=== PATIENT | male | born 1950 | race African-American/Black ===

== ENCOUNTER 2017-12-06 18:10 | Inpatient (IN) | payer OTHER, MEDICARE ==
[2017-12-06 18:42] LABS: ADD MAN DIFF? NO
[2017-12-06 18:45] LABS: BASO % 1 % (0-3); EOS % 0 % (0-3); HEMATOCRIT 42.7 % (39.0-53.0); HEMOGLOBIN 13.7 g/dL (13.0-17.5); LYMPH # 1.3 x10^3/uL (1.0-4.8); LYMPH % 16 % (24-48); MEAN CORPUSCULAR HEMOGLOBIN 27 pg (25-35); MEAN CORPUSCULAR HGB CONC 32 g/dL (31-37); MEAN CORPUSCULAR VOLUME 84 fL (79-100); MONO # 0.6 x10^3/uL (0.0-1.1); MONO % 7 % (0-9); NEUT # 6.4 x10^3uL (1.8-7.7); NEUT % 77 % (31-73); PLATELET COUNT 197 x10^3/uL (140-400); RED CELL DISTRIBUTION WIDTH 15.3 % (11.5-14.5); WHITE BLOOD COUNT 8.3 x10^3/uL (4.0-11.0)
[2017-12-06] MEDS: IV NORMAL SALINE 1000ML BAG 1,000 ML IV ×3 (18:45→21:55)
[2017-12-06 18:56] LABS: INR 1.2 (0.8-1.1); PROTHROMBIN TIME PATIENT 14.9 SEC (11.7-14.0)
[2017-12-06 19:00] LABS: ANION GAP 21 (6-14); BLOOD UREA NITROGEN 97 mg/dL (8-26); BUN/CREATININE RATIO 26 (6-20); CALCIUM 10.8 mg/dL (8.5-10.1); CARBON DIOXIDE 16 mmol/L (21-32); CHLORIDE 88 mmol/L (98-107); CREATININE 3.8 mg/dL (0.7-1.3); GFR 19.4; POTASSIUM 5.9 mmol/L (3.5-5.1); SODIUM 125 mmol/L (136-145)
[2017-12-06 19:04] LABS: ALBUMIN 3.4 g/dL (3.4-5.0); ALBUMIN/GLOBULIN RATIO 0.8 (1.0-1.7); ALK PHOS 81 U/L (46-116); ALT (SGPT) 18 U/L (16-63); AST (SGOT) 7 U/L (15-37); LIPASE 640 U/L (73-393); MAGNESIUM 3.9 mg/dL (1.8-2.4); TOTAL BILIRUBIN 0.7 mg/dL (0.2-1.0); TOTAL PROTEIN 7.7 g/dL (6.4-8.2)
[2017-12-06 19:07] LABS: TROPONINI < 0.017 ng/mL (0.000-0.055)
[2017-12-06 19:10] LABS: THYROID STIM HORMONE (TSH) 0.401 uIU/mL (0.358-3.74)
[2017-12-06 19:14] LABS: CKMB MASS < 0.5 ng/mL (0.0-3.6); CREATINE KINASE 28 U/L (39-308)
[2017-12-06 19:14] LABS: NT-PRO BNP 60 pg/mL (0-124)
[2017-12-06 19:16] LABS: GLUCOSE 854 mg/dL (70-99)
[2017-12-06] MEDS: INSULIN,REGULAR 150 UNIT DRIP 150 ML IV (20:12)
[2017-12-06 21:08] LABS: BASE EXCESS ABG -10 mmol/L (-3-3); HCO3 ABG 15 mmol/L (21-28); PCO2 ABG 31 mmHg (35-46); PH ABG 7.31 (7.35-7.45); PO2 ABG 74 mmHg (65-108); SAT O2 ABG 92 % (92-99)
[2017-12-06 21:32] LABS: BILIRUBIN,URINE SMALL (NEG); CLARITY,URINE CLEAR; COLOR,URINE YELLOW; GLUCOSE,URINE >=1000 mg/dL (NEG); NITRITE,URINE NEGATIVE (NEG); PH,URINE 5.5; PROTEIN,URINE NEGATIVE (NEG-TRACE); UROBILINOGEN,URINE 0.2 mg/dL (0.2 mg/dL)
[2017-12-06 21:38] LABS: AMPHETAMINE/METHAMPHETAMINE NEG (NEG); BACTERIA,URINE 0 /HPF (0-FEW); BARBITURATES NEG (NEG); BENZODIAZEPINES NEG (NEG); CANNABINOIDS NEG (NEG); COCAINE NEG (NEG); ETHANOL, URINE NEG (NEG); METHADONE NEG (NEG); OPIATES NEG (NEG); PHENCYCLIDINE NEG (NEG); RBC,URINE 0 /HPF (0-2); SQUAMOUS EPITHELIAL CELL,UR OCC /LPF; WBC,URINE 0 /HPF (0-4)
[2017-12-06 21:39] LABS: HYALINE CASTS, URINE FEW /HPF
[2017-12-06 21:54] LABS: POC GLUCOSE 473 mg/dL (70-99)
[2017-12-06 23:17] LABS: POC GLUCOSE 273 mg/dL (70-99)
[2017-12-07 00:22] LABS: POC GLUCOSE 289 mg/dL (70-99)
[2017-12-07 00:57] LABS: ANION GAP 14 (6-14); BLOOD UREA NITROGEN 85 mg/dL (8-26); CALCIUM 10.4 mg/dL (8.5-10.1); CARBON DIOXIDE 21 mmol/L (21-32); CHLORIDE 104 mmol/L (98-107); GFR 25.5; GLUCOSE 261 mg/dL (70-99); POTASSIUM 4.7 mmol/L (3.5-5.1); SODIUM 139 mmol/L (136-145)
[2017-12-07 01:00] LABS: MAGNESIUM 3.7 mg/dL (1.8-2.4); PHOSPHORUS 2.5 mg/dL (2.6-4.7)
[2017-12-07 01:22] LABS: POC GLUCOSE 202 mg/dL (70-99)
[2017-12-07] MEDS ORDERED: DEXTROSE 50% 25 GM / 50ML DISP.SYRIN. IV ×2 (02:30→13:15)
[2017-12-07 02:34] LABS: POC GLUCOSE 145 mg/dL (70-99)
[2017-12-07] MEDS: INSULIN GLARGINE 300 UNITS/3 ML INSULN.PEN. SQ ×2 (02:38→21:03)
[2017-12-07 03:36] LABS: POC GLUCOSE 122 mg/dL (70-99)
[2017-12-07 08:12] LABS: POC GLUCOSE 172 mg/dL (70-99)
[2017-12-07 08:34] LABS: POC GLUCOSE 243 mg/dL (70-99)
[2017-12-07] MEDS: INSULIN LISPRO 300 UNITS/3 ML INSULN.PEN. SQ ×6 (08:43→17:15)
[2017-12-07 09:00] LABS: ALBUMIN/GLOBULIN RATIO 0.8 (1.0-1.7); ALK PHOS 70 U/L (46-116); ALT (SGPT) 15 U/L (16-63); ANION GAP 13 (6-14); AST (SGOT) 5 U/L (15-37); BLOOD UREA NITROGEN 73 mg/dL (8-26); BUN/CREATININE RATIO 29 (6-20); CARBON DIOXIDE 22 mmol/L (21-32); CHLORIDE 106 mmol/L (98-107); CREATININE 2.5 mg/dL (0.7-1.3); GFR 31.5; GLUCOSE 187 mg/dL (70-99); POTASSIUM 4.3 mmol/L (3.5-5.1); SODIUM 141 mmol/L (136-145); TOTAL BILIRUBIN 0.5 mg/dL (0.2-1.0); TOTAL PROTEIN 6.8 g/dL (6.4-8.2)
[2017-12-07] MEDS: IV NORMAL SALINE 1000ML BAG 1,000 ML IV ×2 (12:12→20:59)
[2017-12-07] MEDS ORDERED: ACETAMINOPHEN 325 MG TABLET. PO (13:15)
[2017-12-07] MEDS ORDERED: MORPHINE SULFATE 4 MG/ML DISP.SYRIN. IV (13:15)
[2017-12-07] MEDS ORDERED: DOCUSATE SODIUM 100 MG CAPSULE. PO (13:15)
[2017-12-07] MEDS ORDERED: ONDANSETRON PF 4 MG/2 ML VIAL. IV (13:15)
[2017-12-07] MEDS ORDERED: traMADol 50 MG TABLET PO (13:15)
[2017-12-07] MEDS ORDERED: hydrALAZINE 20 MG/ML VIAL. IVP (13:15)
[2017-12-07] MEDS: CHLORHEXIDINE 0.12% 15 ML MOUTHWASH. SWSP ×2 (14:27→21:00)
[2017-12-07] MEDS: HEPARIN PF for SUB-Q USE 5,000 UNIT/0.5 ML VIAL. SQ ×2 (14:27→21:43)
[2017-12-07 16:28] LABS: POC GLUCOSE 238 mg/dL (70-99)
[2017-12-07 16:49] LABS: POC GLUCOSE 192 mg/dL (70-99)
[2017-12-07 18:08] LABS: POC GLUCOSE 237 mg/dL (70-99)
[2017-12-07] MEDS: POLYETHYLENE GLYCOL 3350 17 GM PACKET. PO (20:59)
[2017-12-07] MEDS: SIMVASTATIN 40 MG TABLET. PO (21:00)
[2017-12-07] MEDS ORDERED: INSULIN GLARGINE 300 UNITS/3 ML INSULN.PEN. SQ (21:00)
[2017-12-07] MEDS: amLODIPine BESYLATE 10 MG TABLET PO (21:00)
[2017-12-07 21:09] LABS: POC GLUCOSE 158 mg/dL (70-99)
[2017-12-07 21:12] LABS: MRSA BY PCR Positive (Negative)
[2017-12-08] MEDS: HEPARIN PF for SUB-Q USE 5,000 UNIT/0.5 ML VIAL. SQ ×3 (05:34→22:01)
[2017-12-08 05:35] LABS: ANION GAP 8 (6-14); BLOOD UREA NITROGEN 42 mg/dL (8-26); CALCIUM 9.8 mg/dL (8.5-10.1); CARBON DIOXIDE 23 mmol/L (21-32); CHLORIDE 106 mmol/L (98-107); CREATININE 1.7 mg/dL (0.7-1.3); GFR 49.2; GLUCOSE 147 mg/dL (70-99); SODIUM 137 mmol/L (136-145)
[2017-12-08 07:32] LABS: ADD MAN DIFF? NO
[2017-12-08 07:38] LABS: BASO % 1 % (0-3); EOS # 0.1 x10^3/uL (0.0-0.7); EOS % 1 % (0-3); HEMATOCRIT 33.2 % (39.0-53.0); HEMOGLOBIN 10.8 g/dL (13.0-17.5); LYMPH # 2.3 x10^3/uL (1.0-4.8); LYMPH % 41 % (24-48); MEAN CORPUSCULAR HEMOGLOBIN 26 pg (25-35); MEAN CORPUSCULAR HGB CONC 33 g/dL (31-37); MEAN CORPUSCULAR VOLUME 81 fL (79-100); MONO # 0.5 x10^3/uL (0.0-1.1); MONO % 9 % (0-9); NEUT # 2.6 x10^3uL (1.8-7.7); NEUT % 48 % (31-73); PLATELET COUNT 113 x10^3/uL (140-400); RED BLOOD COUNT 4.08 x10^6/uL (4.30-5.70); RED CELL DISTRIBUTION WIDTH 14.5 % (11.5-14.5); WHITE BLOOD COUNT 5.5 x10^3/uL (4.0-11.0)
[2017-12-08] MEDS: INSULIN LISPRO 300 UNITS/3 ML INSULN.PEN. SQ ×6 (07:54→17:14)
[2017-12-08 08:20] LABS: POC GLUCOSE 147 mg/dL (70-99)
[2017-12-08] MEDS: CHLORHEXIDINE 0.12% 15 ML MOUTHWASH. SWSP ×2 (08:38→22:00)
[2017-12-08 12:01] LABS: POC GLUCOSE 96 mg/dL (70-99)
[2017-12-08] MEDS: POLYETHYLENE GLYCOL 3350 17 GM PACKET. PO (12:43)
[2017-12-08 16:08] LABS: POC GLUCOSE 223 mg/dL (70-99)
[2017-12-08 17:15] LABS: HEMOGLOBIN A1C 13.7 % (4.8-5.6)
[2017-12-08 21:32] LABS: POC GLUCOSE 160 mg/dL (70-99)
[2017-12-08] MEDS: SIMVASTATIN 40 MG TABLET. PO (21:53)
[2017-12-08] MEDS: amLODIPine BESYLATE 10 MG TABLET PO (21:53)
[2017-12-08] MEDS: INSULIN GLARGINE 300 UNITS/3 ML INSULN.PEN. SQ (22:02)
[2017-12-09 04:56] LABS: ADD MAN DIFF? NO
[2017-12-09 05:22] LABS: BASO % 1 % (0-3); EOS # 0.1 x10^3/uL (0.0-0.7); EOS % 2 % (0-3); HEMATOCRIT 31.5 % (39.0-53.0); HEMOGLOBIN 10.2 g/dL (13.0-17.5); LYMPH # 2.1 x10^3/uL (1.0-4.8); LYMPH % 44 % (24-48); MEAN CORPUSCULAR HEMOGLOBIN 27 pg (25-35); MEAN CORPUSCULAR HGB CONC 32 g/dL (31-37); MEAN CORPUSCULAR VOLUME 82 fL (79-100); MONO # 0.5 x10^3/uL (0.0-1.1); MONO % 11 % (0-9); NEUT % 42 % (31-73); PLATELET COUNT 101 x10^3/uL (140-400); RED BLOOD COUNT 3.84 x10^6/uL (4.30-5.70); WHITE BLOOD COUNT 4.8 x10^3/uL (4.0-11.0)
[2017-12-09 05:35] LABS: ANION GAP 5 (6-14); BLOOD UREA NITROGEN 27 mg/dL (8-26); CALCIUM 9.8 mg/dL (8.5-10.1); CARBON DIOXIDE 26 mmol/L (21-32); CHLORIDE 105 mmol/L (98-107); CREATININE 1.7 mg/dL (0.7-1.3); GFR 49.2; GLUCOSE 207 mg/dL (70-99); POTASSIUM 4.5 mmol/L (3.5-5.1); SODIUM 136 mmol/L (136-145)
[2017-12-09] MEDS: HEPARIN PF for SUB-Q USE 5,000 UNIT/0.5 ML VIAL. SQ (06:07)
[2017-12-09 08:13] LABS: POC GLUCOSE 178 mg/dL (70-99)
[2017-12-09] MEDS: CHLORHEXIDINE 0.12% 15 ML MOUTHWASH. SWSP (08:47)
[2017-12-09] MEDS: INSULIN LISPRO 300 UNITS/3 ML INSULN.PEN. SQ ×4 (08:48→12:40)
[2017-12-09 12:19] LABS: POC GLUCOSE 149 mg/dL (70-99)
== END 2017-12-09 13:00 | disposition home or self-care (01) | DRG 682 ==
LOC: ER 18:10 → 1 WEST ICU 20:10 → 5 NORTH 12-07 11:54
DX: N17.0 Acute kidney failure with tubular necrosis (principal); E11.10 Type 2 diabetes mellitus with ketoacidosis without coma; G93.41 Metabolic encephalopathy; E87.1 Hypo-osmolality and hyponatremia; E87.5 Hyperkalemia; I10 Essential (primary) hypertension; Z90.5 Acquired absence of kidney
CPT/HCPCS: 36415; 36600; 70450; 71045; 80048; 80053; 80307; 81001; 82553; 82805; 82962; 83036; 83690; 83735; 83880; 84100; 84443; 84484; 85025; 85610; 87641; 93005; 96361; 96365; 96372; 97161-GP; 97166-GO; 99285; 99285-25; J1815; J7030

== ENCOUNTER → 2021-05-27 | Outpatient (CLI) | payer MEDICARE ==
[2017-12-09 11:15] VITALS: BP 101/65
[~2021-05-27] MED LIST: AMLO-187 PO; CHLO15MO2 PO; IBUP-1060 PO; IRBE300T23 PO; SIMV40TA18 PO
--- NOTE | 2021-05-27 15:29 | KCIC ---
EXAM: Right ankle, 2 views. HISTORY: Pain and swelling. COMPARISON: None. FINDINGS: 2 views of the right ankle are obtained. There is a healed distal fibular diaphyseal fractu re. There is a suspected healed posterior malleolar fracture. There is mild tibiotalar joint osteoart hritis. The ankle mortise is intact. There is no osteochondral lesion. There is soft tissue swelling. IMPRESSION: 1. Healed distal fibular diaphyseal fracture and suspected healed posterior malleolus fracture. 2. Mild tibiotalar joint osteoarthritis. 3. Soft tissue swelling. Electronically signed by: Lucrecia Garcia MD (05/27/2021 3:27 PM) [id number]
--- NOTE | 2021-05-27 15:30 | KCIC ---
EXAM: Pelvis and right hip, 2 views. HISTORY: Arthritis. COMPARISON: None. FINDINGS: A frontal view the pelvis and frog-leg view of the right hip are obtained. There is mild ma rginal acetabular and femoral head spurring. There are large degenerative subchondral cysts involving the right femoral head and acetabulum. There are surgical clips overlying the pelvis. There are vase ctomy clips. There is degenerative change at the lumbosacral junction. IMPRESSION: 1. Moderate to severe right and mild left hip osteoarthritis. 2. Degenerative change at the lumbosacral junction. Electronically signed by: Lucrecia Garcia MD (05/27/2021 3:28 PM) [id number]
--- NOTE | 2021-05-27 17:16 | KCIC ---
EXAM: Right wrist 3 views. HISTORY: Right wrist pain and swelling after fall. COMPARISON: None. FINDINGS: No fractures are identified. Indistinctness of the cortex of the ulnar styloid is consisten t with an erosion. Lesser cortical indistinctness is noted along the proximal carpal row and distal r adius. Joint spaces and alignment are maintained. There is soft tissue swelling. IMPRESSION: 1. Cortical irregularity along the ulnar styloid greater than carpus with soft tissue swelling. Corre late for inflammatory arthritides such as crystalline arthropathy. Also correlate for metabolic distu rbances such as hyperparathyroidism. Electronically signed by: Joshua Shahid MD (05/27/2021 5:13 PM) [id number]
== END ==
LOC: KCIC 14:20
PROVIDERS: ATTEND Internal Medicine
DX: S89.301D Unspecified physeal fracture of lower end of right fibula, subsequent encounter for fracture with routine healing (principal); M19.071 Primary osteoarthritis, right ankle and foot; M16.12 Unilateral primary osteoarthritis, left hip; M47.817 Spondylosis without myelopathy or radiculopathy, lumbosacral region; M79.89 Other specified soft tissue disorders; X58.XXXD Exposure to other specified factors, subsequent encounter
CPT/HCPCS: 73100; 73501; 73600